=== PATIENT | male | born 1985 | race Caucasian/White ===

== ENCOUNTER 2018-01-11 07:42 | Emergency (ER) | payer SELFPAY ==
[2018-01-11 08:13] VITALS: BP 154/98
[2018-01-11] MEDS: ceFAZolin 1 GM Vial IVPUSH ONE (08:41)
[2018-01-11] MEDS: Sodium Chloride 0.9% 10 ML Syringe FLUSH PRN (08:42)
[2018-01-11] MEDS: ceFAZolin 1 GM Vial ONE (08:42)
[2018-01-11 08:53] LABS: CHLORIDE,CL 107 mmol/L (98-107); SODIUM,NA 142 mmol/L (136-145)
--- NOTE | 2018-01-11 17:45 | EDM.PDOC ---
ED HPI GENERAL MEDICAL PROBLEM - General Chief Complaint: Skin Complaint Stated Complaint: ER Time Seen by Provider: 01/11/18 08:00 Source of Information: Reports: Patient History Limitations: Reports: No Limitations - History of Present Illness INITIAL COMMENTS - FREE TEXT/NARRATIVE: Pt. states that he slipped on the ice last week, sustaining a laceration to the posterior aspect of his L elbow. He states that he fell again and was swimming on Thursday, and since that time he has noticed increased erythema surrounding the laceration as well as welling to the soft tissue of his forearm. He has also noticed some discharge from the laceration. He states that he has felt chilled as well. He denies any chest pain or shortness of breath. No weakness. Denies any rigors or sweats. Location: Reports: Upper Extremity, Right Quality: Reports: Ache, Pressure Severity: Moderate Right Elbow Pain Score (Numeric/FACES): 6 - Related Data Allergies Allergy/AdvReac Type Severity Reaction Status Date / Time No Known Allergies Allergy Verified 01/11/18 08:02 Home Meds: Home Meds . [No Known Home Meds] 09/03/15 [History] Past Medical History - Past Health History Medical/Surgical History: Denies Medical/Surgical History Cardiovascular History: Reports: Hypertension Psychiatric History: Reports: Anxiety, Depression Social & Family History - Tobacco Use Smoking Status *Q: Current Every Day Smoker Years of Tobacco use: 19 Packs/Tins Daily: 1 - Alcohol Use Days Per Week of Alcohol Use: 3 Number of Drinks Per Day: 2 Total Drinks Per Week: 6 - Recreational Drug Use Recreational Drug Use: No ED ROS GENERAL - Review of Systems Review Of Systems: See Below Constitutional: Reports: Fever, Chills. Denies: Malaise, Weakness, Fatigue, Diaphoresis HEENT: Reports: No Symptoms Respiratory: Reports: No Symptoms Cardiovascular: Reports: No Symptoms Endocrine: Reports: No Symptoms GI/Abdominal: Reports: No Symptoms : Reports: No Symptoms Musculoskeletal: Reports: Arm Pain, Joint Swelling (R elbow) Skin: Reports: No Symptoms Neurological: Reports: No Symptoms Psychiatric: Reports: No Symptoms Hematologic/Lymphatic: Reports: No Symptoms Immunologic: Reports: No Symptoms ED EXAM, SKIN/RASH Exam: See Below Exam Limited By: No Limitations General Appearance: Alert, WD/WN, No Apparent Distress Ears: Normal External Exam, Normal Canal, Hearing Grossly Normal, Normal TMs Nose: Normal Inspection, Normal Mucosa, No Blood Throat/Mouth: Normal Inspection, Normal Lips, Normal Teeth, Normal Gums, Normal Oropharynx, Normal Voice, No Airway Compromise Head: Atraumatic, Normocephalic Neck: Normal Inspection, Supple, Non-Tender, Full Range of Motion Respiratory/Chest: No Respiratory Distress, Lungs Clear, Normal Breath Sounds, No Accessory Muscle Use, Chest Non-Tender Cardiovascular: Normal Peripheral Pulses, Regular Rate, Rhythm, No Edema, No Gallop, No JVD, No Murmur, No Rub GI/Abdominal: Normal Bowel Sounds, Soft, Non-Tender, No Organomegaly, No Distention, No Abnormal Bruit, No Mass Extremities: Joint Swelling, Arm Pain, Increased Warmth, Redness Neurological: Alert, Oriented, CN II-XII Intact, Normal Cognition, Normal Gait, Normal Reflexes, No Motor/Sensory Deficits Psychiatric: Normal Affect, Normal Mood Skin: Warm, Dry, Intact, Erythema Location, Skin: Upper Extremity, Right Characteristics: Erythematous Associated features: Warmth Lymphatic: No Adenopathy Course - Vital Signs Last Recorded V/S: Last Vital Signs Temp 37.9 C 01/11/18 07:50 Pulse 101 H 01/11/18 07:50 Resp 18 01/11/18 07:50 BP 154/98 H 01/11/18 07:50 Pulse Ox - Orders/Labs/Meds Orders: Active Orders 24 hr Category Date Time Status Elbow Min 3V Rt [CR] Stat Exams 01/11/18 09:09 Taken CULTURE BLOOD [BC] Stat Lab 01/11/18 08:20 Received CULTURE BLOOD [BC] Stat Lab 01/11/18 08:26 Received CULTURE WOUND [RM] Stat Lab 01/11/18 08:20 Received Blood Culture x2 Reflex Set [OM.PC] Stat Oth 01/11/18 08:08 Ordered Peripheral IV Insertion Adult [OM.PC] Routine Oth 01/11/18 08:08 Ordered Labs: Laboratory Tests 01/11/18 01/11/18 01/11/18 Range/Units 08:20 08:20 08:20 WBC 8.4 (4.0-10.0) x10^3/uL RBC 4.46 L (4.5-6.0) x10^6/uL Hgb 13.9 L (14.0-18.0) g/dL Hct 40.1 (40.0-52.0) % MCV 89.9 D (78.0-93.0) fL MCH 31.2 (26.0-32.0) pg MCHC 34.7 (32.0-36.0) g/dL RDW Coeff of [place] 12.9 (10.0-15.0) % Plt Count 270 D (130-400) x10^3/uL Neut % (Auto) 73.0 (50.0-80.0) % Lymph % (Auto) 17.3 L (25.0-50.0) % [place] % (Auto) 7.5 (2.0-11.0) % Eos % (Auto) 1.8 (0.0-4.0) % Baso % (Auto) 0.4 (0.2-1.2) % Sodium 142 (136-145) mmol/L Potassium 3.4 L (3.5-5.1) mmol/L Chloride 107 (98-107) mmol/L Carbon Dioxide 25 (21-32) mmol/L BUN 11 (7-18) mg/dL Creatinine 0.8 (0.70-1.30) mg/dL Est Cr Clr Drug Dosing 121.64 mL/min Estimated GFR (MDRD) > 60 Glucose 109 H (74-106) mg/dL Lactic Acid 1.6 (0.4-2.0) mmol/L Calcium 8.3 L (8.5-10.1) mg/dL Corrected Calcium 8.86 (8.5-10.1) mg/dL Total Bilirubin 0.5 (0.2-1.0) mg/dL AST 29 (15-37) U/L ALT 51 (16-63) U/L Alkaline Phosphatase 115 (46-116) U/L C-Reactive Protein 0.7 (<=0.9) mg/dL Total Protein 6.5 (6.4-8.2) g/dL Albumin 3.3 L (3.4-5.0) g/dL Globulin 3.2 Albumin/Globulin Ratio 1.03 Meds: Medications Discontinued Medications Generic Name Dose Route Start Last Admin Trade Name Freq PRN Reason Stop Dose Admin Cefazolin Sodium 2 gm 01/11/18 08:10 01/11/18 08:41 Ancef IVPUSH 01/11/18 08:11 2 gm ONETIME ONE Administration Cefazolin Sodium Confirm 01/11/18 08:37 01/11/18 08:42 Ancef Administered 01/11/18 08:38 Not Given Dose 1 gm .ROUTE .STK-MED ONE Sodium Chloride 10 ml 01/11/18 08:08 01/11/18 08:42 Saline Flush FLUSH 10 ml ASDIRECTED PRN Administration Keep Vein Open - Radiology Interpretation Free Text/Narrative:: No fracture noted to R upper extremity Departure - Departure Time of Disposition: 10:00 Disposition: Home, Self-Care 01 Condition: Good Clinical Impression: Cellulitis - Discharge Information Instructions: Cellulitis, Adult Referrals: Samantha Vega BOARD CERTIFIED FAMILY PHYSICIAN [Primary Care Provider] - Forms: ED Department Discharge Additional Instructions: Return to ER tonight at around 6 PM for another dose of antibiotics. I will reevaluate your arm at that time. Once you are done with the IV antibiotics, start Dicloxicillin 500mg 4 times daily for 10 days. Return to ER if worsening swelling, discharge, or redness. Off work today and tomorrow due to injury/illness. - My Orders Last 24 Hours: My Active Orders 01/11/18 08:08 Blood Culture x2 Reflex Set [OM.PC] Stat Peripheral IV Insertion Adult [OM.PC] Routine 01/11/18 08:20 CULTURE BLOOD [BC] Stat CULTURE WOUND [RM] Stat 01/11/18 08:26 CULTURE BLOOD [BC] Stat 01/11/18 09:09 Elbow Min 3V Rt [CR] Stat - Assessment/Plan Last 24 Hours: My Active Orders 01/11/18 08:08 Blood Culture x2 Reflex Set [OM.PC] Stat Peripheral IV Insertion Adult [OM.PC] Routine 01/11/18 08:20 CULTURE BLOOD [BC] Stat CULTURE WOUND [RM] Stat 01/11/18 08:26 CULTURE BLOOD [BC] Stat 01/11/18 09:09 Elbow Min 3V Rt [CR] Stat
== END 2018-01-11 10:00 | disposition home or self-care (01) ==
LOC: VM.ED 07:42
DX: L03.114 Cellulitis of left upper limb (principal); I10 Essential (primary) hypertension; F17.210 Nicotine dependence, cigarettes, uncomplicated; W00.0XXA Fall on same level due to ice and snow, initial encounter; Y93.11 Activity, swimming
CPT/HCPCS: 36415; 73080-RT; 80053; 83605; 85025; 86140; 87040; 87070; 87077; 96374; 99283-GF; 99284; J0690; J7050

== ENCOUNTER 2020-06-01 16:33 | Emergency (ER) | payer SELFPAY ==
[2020-06-01] MEDS ORDERED: Sodium Chloride 0.9% 10 ML Syringe FLUSH PRN (17:03)
[2020-06-01] MEDS: Lactated Ringers 1,000 ML IV ONE (17:14)
[2020-06-01] MEDS: diphenhydrAMINE 50 MG/ML SDV IVPUSH ONE (17:15)
[2020-06-01] MEDS: Ketorolac 30 MG/ML SDV IVPUSH ONE (17:18)
[2020-06-01 17:57] LABS: CHLORIDE,CL 104 mmol/L (98-107); SODIUM,NA 141 mmol/L (136-145)
[2020-06-01 18:00] LABS: ANION GAP 13.8 mmol/L (10-20)
[2020-06-01] MEDS: HYDROmorphone 0.5 MG/0.5 ML Syringe IV ONE (18:05)
[2020-06-01 18:12] VITALS: BP 137/95; PULSE 64
--- NOTE | 2020-06-01 18:42 | CT ---
[id number] CT/CT Abdomen Pelvis WO IV EXAM: CT Abdomen Pelvis WO IV CLINICAL DATA: RIGHT FLANK PAIN. HEMATURIA. POSSIBLE STONE. COMPARISON STUDY: 2013. FINDINGS: 2 mm distal right ureteral calculus at the UVJ with mild upstream hydronephrosis. A few additional punctate nonobstructing bilateral renal stones right greater than left. Overall stone burden is mild. No bowel obstruction or inflammation. No lymphadenopathy, free fluid, or pneumoperitoneum. Mild changes of thoracolumbar spondylosis. IMPRESSION: 2 mm obstructing right ureteral calculus at the UVJ with mild upstream hydronephrosis. Nephrolithiasis with overall mild stone burden. Norris Hines MD 06/01/20 [id number] Thank you for allowing us to participate in the care of your patient.
--- NOTE | 2020-06-01 19:33 | EDM.PDOC ---
ED HPI GENERAL MEDICAL PROBLEM - General Chief Complaint: Abdominal Pain Stated Complaint: LOWER ABDOMINAL PAIN Time Seen by Provider: 06/01/20 16:50 Source of Information: Reports: Patient History Limitations: Reports: No Limitations - History of Present Illness INITIAL COMMENTS - FREE TEXT/NARRATIVE: Patient comes emergency department today with complaints of right flank pain. For the past 2 to 3 days he has had intermittent sharp stabbing right flank pain that is moved more to the right lower aspect of his abdomen. It is painful when he urinates. He questioned if he had any blood in his urine. The pain comes and goes on its own and it shoots down into his groin and kind of into his right testicle. The pain is not constant. He has no discharge from his penis and he has no pain in his scrotum or swelling. Had kidney stones in the past and he really feels that is what this is. He has no other pain in his abdomen. No nausea no vomiting. No diarrhea. Fever no chills. No COVID exposure COVID symptoms. - Related Data Allergies Allergy/AdvReac Type Severity Reaction Status Date / Time No Known Allergies Allergy Verified 06/01/20 18:15 Home Meds: Home Meds FLUoxetine HCl [Fluoxetine HCl] 20 mg PO DAILY 10/13/18 [History] hydroCHLOROthiazide [Hydrochlorothiazide] 12.5 mg PO DAILY 10/13/18 [History] Acetaminophen/HYDROcodone [[place] 325-5 MG] 1 tab PO Q4H #6 tablet 06/01/20 [Rx] Tamsulosin HCl [Flomax] 0.4 mg PO DAILY #7 cap.er.24h 06/01/20 [Rx] Past Medical History - Past Health History Medical/Surgical History: Denies Medical/Surgical History Cardiovascular History: Reports: Hypertension Psychiatric History: Reports: Anxiety, Depression Social & Family History - Tobacco Use Smoking Status *Q: Unknown Ever Smoked ED ROS GENERAL - Review of Systems Review Of Systems: Comprehensive ROS is negative, except as noted in HPI. ED EXAM, RENAL/ - Physical Exam Exam: See Below Exam Limited By: No Limitations General Appearance: Alert, WD/WN, No Apparent Distress Ears: Normal External Exam Nose: Normal Inspection Throat/Mouth: Normal Inspection Head: Atraumatic, Normocephalic Neck: Normal Inspection, Supple Respiratory/Chest: No Respiratory Distress, Lungs Clear, Normal Breath Sounds, No Accessory Muscle Use, Chest Non-Tender Cardiovascular: Normal Peripheral Pulses, Regular Rate, Rhythm GI/Abdominal: Normal Bowel Sounds, Soft, Non-Tender, No Organomegaly, No Distention (Male) Exam: Circumcised, Cremasteric Reflex (Present bilaterally. ), Penile Lesions (Scattered genital warts. ). No: Hernia, Inguinal Lymphadenopathy, Scrotal Swelling, Scrotum Tenderness (L), Scrotum Tenderness (R), Suprapubic Fullness, Testicular Mass, Testicular Tenderness (L), Testicular Tenderness (R), Urethral Discharge Rectal (Males) Exam: Deferred Back Exam: Normal Inspection, Full Range of Motion Extremities: Normal Inspection, Normal Range of Motion, Normal Capillary Refill Neurological: Alert, Oriented, Normal Cognition, No Motor/Sensory Deficits Psychiatric: Normal Affect, Normal Mood Skin Exam: Warm, Dry, Intact, Normal Color, No Rash Course - Vital Signs Last Recorded V/S: Last Vital Signs Temp 98.7 F 06/01/20 16:45 Pulse 64 06/01/20 16:45 Resp 16 06/01/20 16:45 BP 137/95 H 06/01/20 16:45 Pulse Ox 96 06/01/20 16:45 - Orders/Labs/Meds Orders: Active Orders 24 hr Category Date Time Status Peripheral IV Insertion Adult [OM.PC] Stat Oth 06/01/20 17:03 Ordered Labs: Laboratory Tests 06/01/20 06/01/20 06/01/20 Range/Units 17:11 17:11 17:11 WBC 6.9 (4.0-10.0) x10^3/uL RBC 4.89 (4.5-6.0) x10^6/uL Hgb 14.7 (14.0-18.0) g/dL Hct 41.5 (40.0-52.0) % MCV 84.9 D (78.0-93.0) fL MCH 30.1 (26.0-32.0) pg MCHC 35.4 (32.0-36.0) g/dL RDW Coeff of [place] 12.8 (10.0-15.0) % Plt Count 335 (130-400) x10^3/uL Neut % (Auto) 53.1 (50.0-80.0) % Lymph % (Auto) 33.0 (25.0-50.0) % [place] % (Auto) 8.4 (2.0-11.0) % Eos % (Auto) 4.3 H (0.0-4.0) % Baso % (Auto) 1.2 (0.2-1.2) % Sodium 141 (136-145) mmol/L Potassium 3.8 (3.5-5.1) mmol/L Chloride 104 (98-107) mmol/L Carbon Dioxide 27 (21-32) mmol/L Anion Gap 13.8 (10-20) mmol/L BUN 7 (7-18) mg/dL Creatinine 0.8 (0.70-1.30) mg/dL Est Cr Clr Drug Dosing TNP Estimated GFR (MDRD) > 60 Glucose 107 H (74-106) mg/dL Calcium 8.2 L (8.5-10.1) mg/dL Corrected Calcium 8.44 L (8.5-10.1) mg/dL Total Bilirubin 0.3 (0.2-1.0) mg/dL AST 34 (15-37) U/L ALT 69 H (16-63) U/L Alkaline Phosphatase 108 (46-116) U/L Total Protein 6.9 (6.4-8.2) g/dL Albumin 3.7 (3.4-5.0) g/dL Globulin 3.2 Albumin/Globulin Ratio 1.16 Urine Color Yellow (YELLOW) Urine Appearance Clear (CLEAR) Urine pH 6.0 (5.0-8.0) Ur Specific [place] 1.025 Urine Protein Negative (NEGATIVE) mg/dL Urine Glucose (UA) Negative (NEGATIVE) mg/dL Urine Ketones Negative (NEGATIVE) mg/dL Urine Occult Blood Moderate H (NEGATIVE) Urine Nitrite Negative (NEGATIVE) Urine Bilirubin Negative (NEGATIVE) Urine Urobilinogen 0.2 (0.2) EU/dL Ur Leukocyte Esterase Negative (NEGATIVE) Urine RBC 0-5 (NOT SEEN) /HPF Urine WBC 0-5 (NOT SEEN) /HPF Ur Squamous Epith Cells Rare (NEGATIVE) /HPF Urine Bacteria Not seen (NEGATIVE) /HPF Urine Mucus Rare H (NEGATIVE) /LPF Meds: Medications Discontinued Medications Generic Name Dose Route Start Last Admin Trade Name Freq PRN Reason Stop Dose Admin Hydrocodone Bitart/Acetaminophen 1 packet 06/01/20 19:23 06/01/20 19:49 Take Home: Acetam/Hydrocodon 325-5 Mg, 5 Pack PO 06/01/20 19:24 1 packet ONETIME ONE Administration Diphenhydramine HCl 25 mg 06/01/20 17:04 06/01/20 17:15 Benadryl IVPUSH 06/01/20 17:05 25 mg ONETIME ONE Administration Hydromorphone HCl 0.5 mg 06/01/20 17:48 06/01/20 18:05 Dilaudid IV 06/01/20 17:49 0.5 mg ONETIME ONE Administration Lactated Ringer's 1,000 mls @ 999 mls/hr 06/01/20 17:04 06/01/20 17:14 Ringers, Lactated IV 06/01/20 18:04 999 mls/hr ONETIME ONE Administration Ketorolac Tromethamine 30 mg 06/01/20 17:04 06/01/20 17:18 Toradol IVPUSH 06/01/20 17:05 30 mg ONETIME ONE Administration Orphenadrine Citrate 60 mg 06/01/20 17:04 06/01/20 17:21 Norflex IV 06/01/20 17:05 60 mg NOW STA Administration Sodium Chloride 10 ml 06/01/20 17:03 Saline Flush FLUSH ASDIRECTED PRN Keep Vein Open Tamsulosin HCl 0.4 mg 06/01/20 19:23 06/01/20 19:48 Flomax PO 06/01/20 19:24 0.4 mg ONETIME ONE Administration - Radiology Interpretation Free Text/Narrative:: CT scan per radiology shows a 2 mm obstructing right ureteral calculus at the UVJ with mild upstream hydronephrosis. He has mild nephrolithiasis stone burden. More stones in the right than the left. - Re-Assessments/Exams Free Text/Narrative Re-Assessment/Exam: 06/01/20 22:35 The patient initially was given Liter of LR wide open. Benadryl 25 mg IV push. Norflex 60 mg IV push. Ketorolac 30 mg IV push. Labs are drawn. Urinalysis shows blood in his urine. His pain continued to be worrisome for him and he was given half a milligram of Dilaudid with resolution of his pain. CT scan abdomen pelvis without contrast concerning for kidney stones per radiology does identify a 2 mm obstructing stone at the UVJ. So has nephrolith iasis more in the right than the left. Otherwise unremarkable CT scan. It was much better after the above therapy. We will discharge him home with Flomax and pain medication and hydration. This will most likely pass on its own as it is a very small stone. If he is not improving over the next 2448 hrs. or so he needs he should recheck. He is understanding of this. Discharge directions as below are explained to the patient he was comfortable this plan and his questions are answered. Departure - Departure Time of Disposition: 19:25 Disposition: Home, Self-Care 01 Clinical Impression: Kidney stone on right side, Nephrolithiasis - Discharge Information Prescriptions: Tamsulosin HCl [Flomax] 0.4 mg PO DAILY #7 cap.er.24h Acetaminophen/HYDROcodone [[place] 325-5 MG] 1 tab PO Q4H #6 tablet Instructions: Renal Colic, [id number], Kidney Stones, [id number], Pain Medicine Instructions, [id number] Referrals: PCP,None [Primary Care Provider] - Forms: ED Department Discharge, ED Return to Work/School Form Additional Instructions: Drink plenty of fluids over the next few days. Rest over the next few days. Tylenol and or Ibuprofen as needed for pain. If pain not controlled with above. [place] 1 tablet every 4 hrs with food as needed for pain. Caution sedation. Do not take this medication while taking tylenol or alcohol. Starter pack from the ED given and RX sent to the pharmacy. Flomax 1 tablet daily for the next 7 days. RX to the pharmacy. Return to the ED if new or worsening symptoms. Follow up with PCP in the next 4-6 days if not improving sooner if worse. Sepsis Event Note (ED) - Evaluation Sepsis Screening Result: No Definite Risk - Focused Exam Vital Signs: Vital Signs Temp Pulse Resp BP Pulse Ox 06/01/20 16:45 98.7 F 64 16 137/95 H 96 - My Orders Last 24 Hours: My Active Orders 06/01/20 17:03 Peripheral IV Insertion Adult [OM.PC] Stat - Assessment/Plan Last 24 Hours: My Active Orders 06/01/20 17:03 Peripheral IV Insertion Adult [OM.PC] Stat Assessment:: Kidney Stone Nephrolithiasis Plan: Drink plenty of fluids over the next few days. Rest over the next few days. Tylenol and or Ibuprofen as needed for pain. If pain not controlled with above. [place] 1 tablet every 4 hrs with food as needed for pain. Caution sedation. Do not take this medication while taking tylenol or alcohol. Starter pack from the ED given and RX sent to the pharmacy. Flomax 1 tablet daily for the next 7 days. RX to the pharmacy. Return to the ED if new or worsening symptoms. Follow up with PCP in the next 4-6 days if not improving sooner if worse.
[2020-06-01] MEDS: Tamsulosin 0.4 MG Cap.ER PO ONE (19:48)
[2020-06-01] MEDS: Take Home: Acetaminophen/HYDROcodone 325-5 MG, 5 Tab Pack PO ONE (19:49)
== END 2020-06-01 20:00 | disposition home or self-care (01) ==
LOC: VM.ED 16:33
DX: N13.2 Hydronephrosis with renal and ureteral calculous obstruction (principal); A63.0 Anogenital (venereal) warts; I10 Essential (primary) hypertension; F41.9 Anxiety disorder, unspecified; F32.9 Major depressive disorder, single episode, unspecified; Z79.899 Other long term (current) drug therapy
CPT/HCPCS: 74176; 80053; 81001; 85025; 96374; 96375; 99284; 99284-25; A9270-GY; J1170; J1200; J1885; J2360; J7120

== ENCOUNTER 2021-08-13 07:09 | Emergency (ER) | payer SELFPAY ==
[2021-08-13] MEDS ORDERED: Sodium Chloride 0.9% 10 ML Syringe FLUSH PRN (08:16)
--- NOTE | 2021-08-13 08:38 | EDM.PDOC ---
ED HPI GENERAL MEDICAL PROBLEM - General Chief Complaint: Cardiovascular Problem Stated Complaint: ER Time Seen by Provider: 08/13/21 07:35 Source of Information: Reports: Patient - History of Present Illness INITIAL COMMENTS - FREE TEXT/NARRATIVE: [place] is a 35 y/o male who presents to the ER with heart palpitations and profuse sweating. He reports that he woke up this AM with the Sx and trued tried to go back to sleep, but really didn't. He got up for work at 6 am and then still felt the same way. He did come to work and was very sweating. He does admit to taking his BP meds about 4 out of 7 days a week. He is on HCTZ, but does not feel that it really helps his BP. He denies feeling sweaty when he went to bed last night. He reports more cold and sweaty. - Related Data Allergies Allergy/AdvReac Type Severity Reaction Status Date / Time No Known Allergies Allergy Verified 08/13/21 08:29 Home Meds: Home Meds FLUoxetine HCl [Fluoxetine HCl] 20 mg PO DAILY 10/13/18 [History] hydroCHLOROthiazide [Hydrochlorothiazide] 25 mg PO DAILY 10/13/18 [History] Acetaminophen/HYDROcodone [[place] 325-5 MG] 1 tab PO Q4H #6 tablet 06/01/20 [Rx] Past Medical History - Past Health History Medical/Surgical History: Denies Medical/Surgical History Cardiovascular History: Reports: Hypertension Psychiatric History: Reports: Anxiety, Depression ED ROS GENERAL - Review of Systems Review Of Systems: See Below Constitutional: Reports: Diaphoresis HEENT: Reports: No Symptoms Respiratory: Reports: No Symptoms Cardiovascular: Reports: Palpitations Endocrine: Reports: No Symptoms GI/Abdominal: Reports: No Symptoms : Reports: No Symptoms Musculoskeletal: Reports: No Symptoms Skin: Reports: No Symptoms Neurological: Reports: No Symptoms Psychiatric: Reports: No Symptoms Hematologic/Lymphatic: Reports: No Symptoms Immunologic: Reports: No Symptoms ED EXAM, GENERAL - Physical Exam Exam: See Below General Appearance: Alert, WD/WN, No Apparent Distress (Adult male) Eye Exam: Bilateral Eye: PERRL Ears: Normal External Exam, Normal Canal, Hearing Grossly Normal Nose: Normal Inspection, Normal Mucosa Throat/Mouth: Normal Inspection, Normal Lips, Normal Teeth, Normal Oropharynx, Normal Voice Head: Atraumatic, Normocephalic Neck: Normal Inspection, Supple, Non-Tender Respiratory/Chest: No Respiratory Distress, Lungs Clear, Chest Non-Tender Cardiovascular: Normal Peripheral Pulses, Regular Rate, Rhythm, No Edema GI/Abdominal: Normal Bowel Sounds, Soft, Non-Tender, No Distention (Male) Exam: Deferred Rectal (Males) Exam: Deferred Back Exam: Normal Inspection Extremities: Normal Inspection, Normal Range of Motion, No Pedal Edema, Normal Capillary Refill Neurological: Alert, Oriented, CN II-XII Intact, No Motor/Sensory Deficits Psychiatric: Normal Affect, Normal Mood Skin Exam: Intact, Normal Color, Cool, Diaphoretic Lymphatic: No Adenopathy #1 Interpretation EKG Date: 08/13/21 Time: 07:25 Rhythm: NSR Rate (Beats/Min): 104 [place]: Normal P-Wave: Present QRS: Normal ST-T: Normal QT: Normal EKG Interpretation Comments: Sinus Tachycardia Course - Vital Signs Text/Narrative:: 0735 The patient was seen by the VALID[facility] SCIENTIST. Labs and EKG ordered. 0945 Note HAH=224, UUP=471. WBC=14.7, diff neg. COVID neg. Note possible Effexor as cause of hyperhydrosis and elevated LFTs; discussed case with PCP Malvin Acevedo CNP and pt has not had issues with abnormal labs prior to this. Additional labs ordered include APAP, Hepatitis panel, ETOH, Lipase. 1015 Noted per PCP that patient had some mild elevations in his LFTs. Will plan to have him taper the Effexor and follow up with his PCP for recheck. Doubt infection with elevated WBC, neg diff today. No fever, but advised to monitor and return as needed. Suspect Effexor as cause of increased LFTs and hyperhyd rosis, but cannot exclude ETOH use. Advised to avoid all hepatotoxic substances. Hepatitis labs pending. He was given discharge instructions and left the ER in stable condition. - Orders/Labs/Meds Orders: Active Orders 24 hr Category Date Time Status EKG Documentation Completion [RC] STAT Care 08/13/21 08:16 Active Sodium Chloride 0.9% [Saline Flush] Med 08/13/21 08:16 Active 10 ml FLUSH ASDIRECTED PRN Saline Lock Insert [OM.PC] Stat Oth 08/13/21 08:16 Ordered Medication Orders Sodium Chloride (Sodium Chloride 0.9% 10 Ml Syringe) 10 ml FLUSH ASDIRECTED PRN PRN Reason: Keep Vein Open Labs: Laboratory Tests 08/13/21 08/13/21 08/13/21 Range/Units 08:25 08:25 08:26 WBC 14.7 H (4.0-10.0) x10^3/uL RBC 5.44 (4.5-6.0) x10^6/uL Hgb 16.5 (14.0-18.0) g/dL Hct 47.5 (40.0-52.0) % MCV 87.3 (78.0-93.0) fL MCH 30.3 (26.0-32.0) pg MCHC 34.7 (32.0-36.0) g/dL RDW Coeff of [place] 12.2 (10.0-15.0) % Plt Count 398 (130-400) x10^3/uL Immature Gran % (Auto) 0.80 H (0.00-0.43) % Neut % (Auto) 69.5 (50.0-80.0) % Lymph % (Auto) 17.6 L (25.0-50.0) % [place] % (Auto) 10.5 (2.0-11.0) % Eos % (Auto) 1.1 (0.0-4.0) % Baso % (Auto) 0.5 (0.2-1.2) % Neut # (Auto) 10.2 H (1.8-7.7) x10^3/uL Lymph # (Auto) 2.6 (1.0-4.8) x10^3/uL Lyman # (Auto) 1.5 H (0.0-0.8) x10^3/uL Eos # (Auto) 0.2 (0.0-0.5) x10^3/uL Baso # (Auto) 0.1 (0.0-0.2) x10^3/uL Immature Gran # (Auto) 0.12 H (0.00-0.07) x10^3/uL Sodium (136-145) mmol/L Potassium (3.5-5.1) mmol/L Chloride (98-107) mmol/L Carbon Dioxide (21-32) mmol/L Anion Gap (5-15) mmol/L BUN (7-18) mg/dL Creatinine (0.70-1.30) mg/dL Est Cr Clr Drug Dosing Estimated GFR (MDRD) Glucose (70-99) mg/dL Calcium (8.5-10.1) mg/dL Corrected Calcium (8.5-10.1) mg/dL Magnesium (1.8-2.4) mg/dL Total Bilirubin (0.2-1.0) mg/dL Direct Bilirubin (0.00-0.20) mg/dL Indirect Bilirubin AST (15-37) U/L ALT (16-63) U/L Alkaline Phosphatase (46-116) U/L Troponin I High Sens (<=76) ng/L C-Reactive Protein (<=0.9) mg/dL Total Protein (6.4-8.2) g/dL Albumin (3.4-5.0) g/dL Globulin Albumin/Globulin Ratio TSH, Ultra Sensitive (0.358-3.74) uIU/mL Urine Color Yellow (YELLOW) Urine Appearance Clear (CLEAR) Urine pH 6.0 (5.0-8.0) Ur Specific [place] 1.025 Urine Protein Negative (NEGATIVE) mg/dL Urine Glucose (UA) Negative (NEGATIVE) mg/dL Urine Ketones Negative (NEGATIVE) mg/dL Urine Occult Blood Negative (NEGATIVE) Urine Nitrite Negative (NEGATIVE) Urine Bilirubin Negative (NEGATIVE) Urine Urobilinogen 0.2 (0.2) EU/dL Ur Leukocyte Esterase Negative (NEGATIVE) Urine Opiates Screen Negative (NEGATIVE) Ur Buprenorphine Scrn Negative (NEGATIVE) Ur Oxycodone Screen Negative (NEGATIVE) Urine Methadone Screen Negative (NEGATIVE) Acetaminophen (10-30) ug/ml Ur Barbituates Screen Negative (NEGATIVE) Ur Phencyclidine Scrn Negative (NEGATIVE) Ur Amphetamines Screen Negative (NEGATIVE) U Methamphetamines Scrn Negative (NEGATIVE) Urine MDMA Screen Negative (NEGATIVE) U Benzodiazepines Scrn Negative (NEGATIVE) Urine Cocaine Screen Negative (NEGATIVE) U Marijuana (THC) Screen Positive H (NEGATIVE) Ethyl Alcohol (0-3) mg/dL SARS CoV-2 RNA Rapid ZECHARIAH (NEGATIVE) 08/13/21 08/13/21 08/13/21 Range/Units 08:26 08:26 08:26 WBC (4.0-10.0) x10^3/uL RBC (4.5-6.0) x10^6/uL Hgb (14.0-18.0) g/dL Hct (40.0-52.0) % MCV (78.0-93.0) fL MCH (26.0-32.0) pg MCHC (32.0-36.0) g/dL RDW Coeff of [place] (10.0-15.0) % Plt Count (130-400) x10^3/uL Immature Gran % (Auto) (0.00-0.43) % Neut % (Auto) (50.0-80.0) % Lymph % (Auto) (25.0-50.0) % [place] % (Auto) (2.0-11.0) % Eos % (Auto) (0.0-4.0) % Baso % (Auto) (0.2-1.2) % Neut # (Auto) (1.8-7.7) x10^3/uL Lymph # (Auto) (1.0-4.8) x10^3/uL [place] # (Auto) (0.0-0.8) x10^3/uL Eos # (Auto) (0.0-0.5) x10^3/uL Baso # (Auto) (0.0-0.2) x10^3/uL Immature Gran # (Auto) (0.00-0.07) x10^3/uL Sodium 141 (136-145) mmol/L Potassium 3.9 (3.5-5.1) mmol/L Chloride 101 (98-107) mmol/L Carbon Dioxide 27 (21-32) mmol/L Anion Gap 16.9 H (5-15) mmol/L BUN 10 (7-18) mg/dL Creatinine 0.8 (0.70-1.30) mg/dL Est Cr Clr Drug Dosing TNP Estimated GFR (MDRD) > 60 Glucose 117 H (70-99) mg/dL Calcium 9.9 D (8.5-10.1) mg/dL Corrected Calcium 9.9 (8.5-10.1) mg/dL Magnesium 2.1 (1.8-2.4) mg/dL Total Bilirubin 0.6 0.6 (0.2-1.0) mg/dL Direct Bilirubin 0.19 (0.00-0.20) mg/dL Indirect Bilirubin 0.41 AST 567 H 567 H (15-37) U/L ALT 574 H 574 H (16-63) U/L Alkaline Phosphatase 150 H 150 H (46-116) U/L Troponin I High Sens 8 (<=76) ng/L C-Reactive Protein 2.0 H (<=0.9) mg/dL Total Protein 8.2 8.2 (6.4-8.2) g/dL Albumin 4.0 4.0 (3.4-5.0) g/dL Globulin 4.2 4.2 Albumin/Globulin Ratio 0.95 0.95 TSH, Ultra Sensitive 0.900 (0.358-3.74) uIU/mL Urine Color (YELLOW) Urine Appearance (CLEAR) Urine pH (5.0-8.0) Ur Specific [place] Urine Protein (NEGATIVE) mg/dL Urine Glucose (UA) (NEGATIVE) mg/dL Urine Ketones (NEGATIVE) mg/dL Urine Occult Blood (NEGATIVE) Urine Nitrite (NEGATIVE) Urine Bilirubin (NEGATIVE) Urine Urobilinogen (0.2) EU/dL Ur Leukocyte Esterase (NEGATIVE) Urine Opiates Screen (NEGATIVE) Ur Buprenorphine Scrn (NEGATIVE) Ur Oxycodone Screen (NEGATIVE) Urine Methadone Screen (NEGATIVE) Acetaminophen 0 L (10-30) ug/ml Ur Barbituates Screen (NEGATIVE) Ur Phencyclidine Scrn (NEGATIVE) Ur Amphetamines Screen (NEGATIVE) U Methamphetamines Scrn (NEGATIVE) Urine MDMA Screen (NEGATIVE) U Benzodiazepines Scrn (NEGATIVE) Urine Cocaine Screen (NEGATIVE) U Marijuana (THC) Screen (NEGATIVE) Ethyl Alcohol < 3 (0-3) mg/dL SARS CoV-2 RNA Rapid ZECHARIAH (NEGATIVE) 08/13/21 Range/Units 08:45 WBC (4.0-10.0) x10^3/uL RBC (4.5-6.0) x10^6/uL Hgb (14.0-18.0) g/dL Hct (40.0-52.0) % MCV (78.0-93.0) fL MCH (26.0-32.0) pg MCHC (32.0-36.0) g/dL RDW Coeff of [place] (10.0-15.0) % Plt Count (130-400) x10^3/uL Immature Gran % (Auto) (0.00-0.43) % Neut % (Auto) (50.0-80.0) % Lymph % (Auto) (25.0-50.0) % [place] % (Auto) (2.0-11.0) % Eos % (Auto) (0.0-4.0) % Baso % (Auto) (0.2-1.2) % Neut # (Auto) (1.8-7.7) x10^3/uL Lymph # (Auto) (1.0-4.8) x10^3/uL [place] # (Auto) (0.0-0.8) x10^3/uL Eos # (Auto) (0.0-0.5) x10^3/uL Baso # (Auto) (0.0-0.2) x10^3/uL Immature Gran # (Auto) (0.00-0.07) x10^3/uL Sodium (136-145) mmol/L Potassium (3.5-5.1) mmol/L Chloride (98-107) mmol/L Carbon Dioxide (21-32) mmol/L Anion Gap (5-15) mmol/L BUN (7-18) mg/dL Creatinine (0.70-1.30) mg/dL Est Cr Clr Drug Dosing Estimated GFR (MDRD) Glucose (70-99) mg/dL Calcium (8.5-10.1) mg/dL Corrected Calcium (8.5-10.1) mg/dL Magnesium (1.8-2.4) mg/dL Total Bilirubin (0.2-1.0) mg/dL Direct Bilirubin (0.00-0.20) mg/dL Indirect Bilirubin AST (15-37) U/L ALT (16-63) U/L Alkaline Phosphatase (46-116) U/L Troponin I High Sens (<=76) ng/L C-Reactive Protein (<=0.9) mg/dL Total Protein (6.4-8.2) g/dL Albumin (3.4-5.0) g/dL Globulin Albumin/Globulin Ratio TSH, Ultra Sensitive (0.358-3.74) uIU/mL Urine Color (YELLOW) Urine Appearance (CLEAR) Urine pH (5.0-8.0) Ur Specific [place] Urine Protein (NEGATIVE) mg/dL Urine Glucose (UA) (NEGATIVE) mg/dL Urine Ketones (NEGATIVE) mg/dL Urine Occult Blood (NEGATIVE) Urine Nitrite (NEGATIVE) Urine Bilirubin (NEGATIVE) Urine Urobilinogen (0.2) EU/dL Ur Leukocyte Esterase (NEGATIVE) Urine Opiates Screen (NEGATIVE) Ur Buprenorphine Scrn (NEGATIVE) Ur Oxycodone Screen (NEGATIVE) Urine Methadone Screen (NEGATIVE) Acetaminophen (10-30) ug/ml Ur Barbituates Screen (NEGATIVE) Ur Phencyclidine Scrn (NEGATIVE) Ur Amphetamines Screen (NEGATIVE) U Methamphetamines Scrn (NEGATIVE) Urine MDMA Screen (NEGATIVE) U Benzodiazepines Scrn (NEGATIVE) Urine Cocaine Screen (NEGATIVE) U Marijuana (THC) Screen (NEGATIVE) Ethyl Alcohol (0-3) mg/dL SARS CoV-2 RNA Rapid ZECHARIAH Negative (NEGATIVE) Meds: Medications Generic Name Dose Route Start Last Admin Trade Name Freq PRN Reason Stop Dose Admin Sodium Chloride 10 ml 08/13/21 08:16 Sodium Chloride 0.9% 10 Ml Syringe FLUSH ASDIRECTED PRN Keep Vein Open Departure - Departure Time of Disposition: 10:31 Disposition: Home, Self-Care 01 Condition: Good Clinical Impression: Abnormal LFTs, Sweating Instructions: Liver Function Tests Referrals: Malvin Acevedo, ENGLISH DRAWER [Primary Care Provider] - Forms: ED Department Discharge, ED Return to Work/School Form Additional Instructions: -Taper off Effexor by taking a dose every other day over the next week then stopping. -Avoid all alcohol, acetaminophen. -Make an appt to see Malvin Acevedo CNP at [facility] to recheck labs and discuss med. -If your symptoms are worse or you have any other concerns, return to the ER. - Problem List & Annotations (1) Abnormal LFTs SNOMED Code(s): 799560263 Code(s): R94.5 - ABNORMAL RESULTS OF LIVER FUNCTION STUDIES Status: Acute Current Visit: Yes Annotation/Comment:: LFTs elevated: AST-567, EAD=404. Both very mildly elevated Oct 2020. Will have pt taper off Effexor. Hepatitis labs pending. FU with PCP on . (2) Sweating SNOMED Code(s): 848646810 Code(s): KWR1717 - Status: Acute Current Visit: Yes Annotation/Comment:: Possible raction to Effexor. Will have pt monitor for fever and any other infectious sx. (3) HTN (hypertension) SNOMED Code(s): 17041679 Code(s): I10 - ESSENTIAL (PRIMARY) HYPERTENSION Status: Acute Current Visit: Yes Annotation/Comment:: Currently on HCTZ, but does not like how it makes him feel. Will have PCP recheck BP in clinic in 2 days. - Problem List Review Problem List Initiated/Reviewed/Updated: Yes - My Orders Last 24 Hours: My Active Orders 08/13/21 08:16 EKG Documentation Completion [RC] STAT Sodium Chloride 0.9% [Saline Flush] 10 ml FLUSH ASDIRECTED PRN Saline Lock Insert [OM.PC] Stat - Assessment/Plan Last 24 Hours: My Active Orders 08/13/21 08:16 EKG Documentation Completion [RC] STAT Sodium Chloride 0.9% [Saline Flush] 10 ml FLUSH ASDIRECTED PRN Saline Lock Insert [OM.PC] Stat Plan: As above
[2021-08-13 09:03] LABS: ANION GAP 16.9 mmol/L (5-15); CHLORIDE,CL 101 mmol/L (98-107); SODIUM,NA 141 mmol/L (136-145)
[2021-08-13 09:56] LABS: BUPRENORPHINE,URINE NEGATIVE (NEGATIVE); MARIJUANA,URINE POSITIVE (NEGATIVE); METHYLENEDIOXYMETHAMP,UR NEGATIVE (NEGATIVE); PHENCYCLIDINE,URINE NEGATIVE (NEGATIVE)
[2021-08-13 15:18] VITALS: BP 154/86; PULSE 101
== END 2021-08-13 10:50 | disposition home or self-care (01) ==
LOC: VM.ED 07:09
DX: R61 Generalized hyperhidrosis (principal); R79.89 Other specified abnormal findings of blood chemistry; I10 Essential (primary) hypertension; Z20.822 Contact with and (suspected) exposure to COVID-19; Z79.899 Other long term (current) drug therapy
CPT/HCPCS: 36415; 80048; 80053; 80076; 80143; 80305-QW; 80307; 81003; 83735; 84443; 84484; 85025; 86140; 93005; 93010; 99284; 99285-25; U0002

== ENCOUNTER 2023-09-16 17:07 | Emergency (ER) | payer OTHER ==
[2023-09-16] MEDS: Lidocaine 1% 10 ML MDV INJECT ONE (17:30)
[2023-09-16] MEDS: Diphtheria,Pertussis(Acell),Tetanus Vaccine 0.5 ML Syringe IM ONE (17:45)
[2023-09-16 18:38] VITALS: BP 132/76; PULSE 88
== END 2023-09-16 17:54 | disposition home or self-care (01) ==
LOC: SUPCPDRO 17:07 → VM.ED 17:07
DX: S01.21XA Laceration without foreign body of nose, initial encounter (principal); I10 Essential (primary) hypertension; F17.200 Nicotine dependence, unspecified, uncomplicated; Z79.899 Other long term (current) drug therapy; Z23 Encounter for immunization; W23.0XXA Caught, crushed, jammed, or pinched between moving objects, initial encounter
CPT/HCPCS: 12011; 90471; 90715; 99283; 99283-25; J3490